=== PATIENT | female | born 1965 | race African-American/Black ===

== ENCOUNTER 2024-01-25 02:51 | Emergency (ER) | payer MEDICARE ==
[~2024-01-25] VITALS: Ht 160 cm; Wt 83.0 kg
[2024-01-25 03:09] VITALS: O2SAT 96
[2024-01-25] MEDS: KETOROLAC 30MG/ML VIAL IM ONE (03:45)
[2024-01-25] MEDS ORDERED: IBUP-2028 MT (06:14)
[2024-01-25 07:01] VITALS: BP 120/77; PULSE 80; RESP 20; TEMP 98
== END 2024-01-25 07:03 | disposition home or self-care (01) ==
LOC: ER 02:51
DX: M25.512 Pain in left shoulder (principal); R07.89 Other chest pain; M25.572 Pain in left ankle and joints of left foot; M54.2 Cervicalgia; M54.9 Dorsalgia, unspecified; V49.9XXA Car occupant (driver) (passenger) injured in unspecified traffic accident, initial encounter; Y93.89 Activity, other specified; Y92.89 Other specified places as the place of occurrence of the external cause; Y99.8 Other external cause status
CPT/HCPCS: 99285; 70450; 71046; 73030; 73610; 72125; 72128; 72131; 93005; 96372; J1885